=== PATIENT | male | born 1955 | race Two or more races ===

== ENCOUNTER 2018-02-06 22:12 | Inpatient (IN) | payer OTHER, MEDICAID ==
[~2018-02-06] VITALS: Ht 170.2 cm; Wt 74.2 kg
[2018-02-06] MEDS ORDERED: DILTIAZEM HCL IV 125 MG in IV NS 0.9% 100 ML IV PRN ×2 (22:30→23:30)
[2018-02-06] MEDS ORDERED: DILTIAZEM HCL 50 MG IV IV ONE (22:30)
[2018-02-06] MEDS ORDERED: DILTIAZEM HCL 50 MG IV ONE (22:34)
[2018-02-06] MEDS ORDERED: PRED5TAB48 PO (22:46)
[2018-02-06] MEDS ORDERED: GABA-532 PO (22:46)
[2018-02-06] MEDS ORDERED: INSU100I30 SQ (22:46)
[2018-02-06] MEDS ORDERED: AMLO10TA2 PO (22:46)
[2018-02-06] MEDS ORDERED: SEVE800T8 PO (22:46)
[2018-02-06] MEDS ORDERED: LISI40TA4 PO (22:46)
[2018-02-06] MEDS ORDERED: PANT40TA4 PO (22:46)
[2018-02-06] MEDS ORDERED: HYDR12.5 PO (22:46)
[2018-02-06] MEDS ORDERED: SIMV20TA2 PO (22:46)
[2018-02-06] MEDS ORDERED: ALLO100T PO (22:46)
[2018-02-06] MEDS ORDERED: HYDR-552 PO (22:46)
[2018-02-06] MEDS ORDERED: MYCO500T PO (22:46)
[2018-02-06 22:49] LABS: BASOPHILS % (AUTO) 0.4 % (0.0-2.0); EOSINOPHILS % (AUTO) 0.1 % (0.0-6.0); HEMATOCRIT 30 % (39-51); LYMPHOCYTES # (AUTO) 0.8 /CMM (0.8-4.8); LYMPHOCYTES % (AUTO) 12.6 % (20.0-44.0); MEAN CORPUSCULAR HEMOGLOBIN 34 PG (26.0-33.0); MEAN CORPUSCULAR HGB CONC 34 g/dl (31.0-36.0); MEAN CORPUSCULAR VOLUME 100 fL (80-96); MONOCYTES # (AUTO) 0.4 /CMM (0.1-1.30); MONOCYTES % (AUTO) 6.4 % (2.0-12.0); NEUTROPHILS # (AUTO) 4.8 /CMM (1.8-8.9); NEUTROPHILS % (AUTO) 80.5 % (43.0-81.0); PLATELET COUNT (AUTO) 191 /CMM (150-450); RDW COEFFICIENT OF VARIATION 16.2 (11.5-15.0); RED BLOOD CELL COUNT(AUTO) 2.96 MIL/uL (4.5-6.0)
[2018-02-06] MEDS ORDERED: ACET-868 PO (22:49)
[2018-02-06 23:02] LABS: CALCIUM, SERUM 8.8 mg/dL (8.5-10.1); CREATININE 3.9 mg/dL (0.6-1.3)
[2018-02-06 23:05] LABS: INR 0.96 (0.87-1.13)
[2018-02-06 23:17] LABS: TROPONIN I 1.034 ng/mL (0.00-0.056)
[2018-02-06] MEDS ORDERED: ASPIRIN 325 MG TABLET ONE (23:29)
[2018-02-06] MEDS ORDERED: ASPIRIN 325 MG TABLET PO ONE (23:30)
[2018-02-06] MEDS ORDERED: MAGNESIUM HYDROXIDE 30 ML UDC PO PRN (23:30)
[2018-02-06] MEDS ORDERED: ACETAMINOPHEN 325 MG TABLET PO PRN (23:30)
[2018-02-06] MEDS ORDERED: DEXTROSE 50%-WATER 50 ML DISP.SYRIN IV PRN (23:30)
[2018-02-06] MEDS ORDERED: ONDANSETRON HCL/PF 4 MG/2 ML VIAL IVP PRN (23:30)
[2018-02-06] MEDS ORDERED: HYDROCODONE/APAP 10/325MG 1 EA TABLET PO PRN (23:30)
[2018-02-06] MEDS ORDERED: MAG HYDROX/AL HYDROX/SIMETH 30 ML UDC PO PRN (23:30)
[2018-02-06] MEDS ORDERED: HYDROCODONE/APAP 5/325MG 1 EACH TABLET PO PRN (23:30)
[2018-02-07] VITALS (15 sets, daily range): BP systolic 92–133; BP diastolic 43–90
[2018-02-07] MEDS ORDERED: NITROGLYCERIN 0.4 MG/TAB BOTTLE SL ONE
[2018-02-07 07:56] LABS: BASOPHILS % (AUTO) 0.6 % (0.0-2.0); EOSINOPHILS # (AUTO) 0.1 /CMM (0.0-0.7); HEMATOCRIT 29 % (39-51); HEMOGLOBIN 9.7 g/dL (13.5-17.5); LYMPHOCYTES # (AUTO) 1.1 /CMM (0.8-4.8); LYMPHOCYTES % (AUTO) 20.9 % (20.0-44.0); MEAN CORPUSCULAR HEMOGLOBIN 34 PG (26.0-33.0); MEAN CORPUSCULAR HGB CONC 33 g/dl (31.0-36.0); MEAN CORPUSCULAR VOLUME 101 fL (80-96); MONOCYTES # (AUTO) 0.5 /CMM (0.1-1.30); NEUTROPHILS # (AUTO) 3.7 /CMM (1.8-8.9); NEUTROPHILS % (AUTO) 68.5 % (43.0-81.0); PLATELET COUNT (AUTO) 180 /CMM (150-450); RDW COEFFICIENT OF VARIATION 15.9 (11.5-15.0); RED BLOOD CELL COUNT(AUTO) 2.89 MIL/uL (4.5-6.0); WHITE BLOOD COUNT (AUTO) 5.4 K/uL (4.3-11.0)
[2018-02-07 08:09] LABS: CALCIUM, SERUM 8.6 mg/dL (8.5-10.1); CREATININE 5.2 mg/dL (0.6-1.3); MAGNESIUM 2.4 mg/dL (1.8-2.4); PHOSPHORUS 4.6 mg/dL (2.5-4.9); POTASSIUM 4.3 mmol/L (3.5-5.1)
[2018-02-07 08:19] LABS: TROPONIN I 1.277 ng/mL (0.00-0.056)
[2018-02-07] MEDS: ASPIRIN 325 MG TABLET PO SCH (08:32)
[2018-02-07] MEDS: BLOOD SUGAR DIAGNOSTIC 1 EACH STRIP IN SCH ×4 (08:32→22:01)
[2018-02-07] MEDS: GABAPENTIN 100 MG CAPSULE PO SCH (08:32)
[2018-02-07] MEDS: SEVELAMER CARBONATE 800 MG TABLET PO SCH (08:32)
[2018-02-07] MEDS: PANTOPRAZOLE 40 MG TABLET.DR PO SCH (08:33)
[2018-02-07] MEDS: SIMVASTATIN 20 MG TABLET PO SCH (08:33)
[2018-02-07] MEDS: MYCOPHENOLATE MOFETIL 250 MG CAPSULE PO SCH (08:33)
[2018-02-07] MEDS: predniSONE 20 MG TABLET PO SCH (08:33)
[2018-02-07] MEDS: ALLOPURINOL 100 MG TABLET PO SCH (08:33)
[2018-02-07] MEDS: INSULIN REGULAR, HUMAN 100 UNIT/ML 3 ML VIAL SQ PRN ×3 (08:45→22:00)
[2018-02-07] MEDS: INSULIN GLARGINE, 100 UNIT/ML CARTRIDGE SQ SCH (08:45)
[2018-02-07 11:32] LABS: ABG BASE EXCESS 7.6 mmol/L; ABG OXYGEN SATURATION 87.9 % (92.0-98.5); ABG PCO2 42.4 mmHg (35.0-45.0); ABG PH 7.491 (7.350-7.450); ABG PO2 54.9 mmHg (75.0-100.0); AaDO2 181.5 mmHg; COHb 0.3 % (0.5-1.5); MetHb 0.1 % (0.0-1.5); O2Hb 87.5 % (94.0-97.0); SITE, ABG Right Radial; VENT MODE, BG nasal cannula
[2018-02-07] MEDS ORDERED: HEPARIN SODIUM, PORCINE 5000 UNITS/1 ML VIAL IV ONE (12:00)
[2018-02-07] MEDS: HEPARIN INFUSION/D5W 500 ML IV PRN (12:13)
[2018-02-07] MEDS ORDERED: IV NS 0.9% 1,000 ML IV PRN (16:30)
[2018-02-07] MEDS: LISINOPRIL (20MG) 20 MG TABLET PO SCH (17:00)
[2018-02-07] MEDS: AMLODIPINE BESYLATE 10 MG TABLET PO SCH (17:00)
[2018-02-07] MEDS: HYDROCHLOROTHIAZIDE 25 MG TABLET PO SCH (17:00)
[2018-02-08] VITALS (34 sets, daily range): BP systolic 89–147; BP diastolic 35–76
[2018-02-08 05:30] LABS: BASOPHILS % (AUTO) 0.5 % (0.0-2.0); EOSINOPHILS # (AUTO) 0.2 /CMM (0.0-0.7); HEMATOCRIT 34 % (39-51); HEMOGLOBIN 11.3 g/dL (13.5-17.5); LYMPHOCYTES # (AUTO) 1.4 /CMM (0.8-4.8); LYMPHOCYTES % (AUTO) 18.4 % (20.0-44.0); MEAN CORPUSCULAR HEMOGLOBIN 34 PG (26.0-33.0); MEAN CORPUSCULAR HGB CONC 34 g/dl (31.0-36.0); MEAN CORPUSCULAR VOLUME 101 fL (80-96); MONOCYTES # (AUTO) 0.7 /CMM (0.1-1.30); MONOCYTES % (AUTO) 8.4 % (2.0-12.0); NEUTROPHILS # (AUTO) 5.4 /CMM (1.8-8.9); NEUTROPHILS % (AUTO) 69.7 % (43.0-81.0); PLATELET COUNT (AUTO) 212 /CMM (150-450); RDW COEFFICIENT OF VARIATION 15.5 (11.5-15.0); RED BLOOD CELL COUNT(AUTO) 3.32 MIL/uL (4.5-6.0); WHITE BLOOD COUNT (AUTO) 7.7 K/uL (4.3-11.0)
[2018-02-08 05:59] LABS: ALBUMIN 3.5 g/dL (3.4-5.0); BILIRUBIN,TOTAL 0.5 mg/dL (0.2-1.0); CALCIUM, SERUM 9.1 mg/dL (8.5-10.1); CREATININE 5.8 mg/dL (0.6-1.3); MAGNESIUM 2.6 mg/dL (1.8-2.4); PHOSPHORUS 5.5 mg/dL (2.5-4.9); POTASSIUM 3.8 mmol/L (3.5-5.1); TOTAL PROTEIN, SERUM 7.4 g/dL (6.4-8.2)
[2018-02-08 06:02] LABS: TROPONIN I 1.125 ng/mL (0.00-0.056)
[2018-02-08] MEDS: BLOOD SUGAR DIAGNOSTIC 1 EACH STRIP IN SCH ×4 (07:10→21:44)
[2018-02-08 07:30] LABS: IRON, SERUM 48 ug/dl (50-175); TOTAL IRON BINDING CAPACITY 163 ug/dl (250-450)
[2018-02-08] MEDS: PANTOPRAZOLE 40 MG TABLET.DR PO SCH (07:48)
[2018-02-08] MEDS: GABAPENTIN 100 MG CAPSULE PO SCH (07:48)
[2018-02-08] MEDS: HYDROCHLOROTHIAZIDE 25 MG TABLET PO SCH (07:48)
[2018-02-08] MEDS: METOPROLOL TARTRATE 50 MG TABLET PO SCH ×3 (07:48→17:38)
[2018-02-08] MEDS: ASPIRIN 325 MG TABLET PO SCH (07:48)
[2018-02-08] MEDS: SEVELAMER CARBONATE 800 MG TABLET PO SCH (07:49)
[2018-02-08] MEDS: predniSONE 20 MG TABLET PO SCH (07:49)
[2018-02-08] MEDS: AMLODIPINE BESYLATE 10 MG TABLET PO SCH (07:49)
[2018-02-08] MEDS: SIMVASTATIN 20 MG TABLET PO SCH (07:50)
[2018-02-08] MEDS: ALLOPURINOL 100 MG TABLET PO SCH (07:50)
[2018-02-08] MEDS: LISINOPRIL (20MG) 20 MG TABLET PO SCH (07:50)
[2018-02-08] MEDS: MYCOPHENOLATE MOFETIL 250 MG CAPSULE PO SCH (07:50)
[2018-02-08 07:57] LABS: FERRITIN 1691 ng/mL (8-388)
[2018-02-08] MEDS: INSULIN GLARGINE, 100 UNIT/ML CARTRIDGE SQ SCH (08:24)
[2018-02-08] MEDS: HEPARIN INFUSION/D5W 500 ML IV PRN (09:08)
[2018-02-08] MEDS ORDERED: IOHEXOL-350 100 ML VIAL IV ONE (10:04)
[2018-02-08] MEDS ORDERED: IV NS 0.9% 250 ML IV ONE (10:04)
[2018-02-08] MEDS ORDERED: CT SWABBABLE VALVE TRANS SET 1 EA INFUS.SET MC ONE (10:04)
[2018-02-08] MEDS ORDERED: NITROGLYCERIN 0.4 MG/TAB BOTTLE ONE (10:27)
[2018-02-08] MEDS ORDERED: METOPROLOL TARTRATE 50 MG TABLET PO SCH (12:00)
[2018-02-08] MEDS: INSULIN REGULAR, HUMAN 100 UNIT/ML 3 ML VIAL SQ PRN ×3 (12:16→21:48)
[2018-02-09] VITALS (16 sets, daily range): BP systolic 98–129; BP diastolic 41–66
[2018-02-09] MEDS: METOPROLOL TARTRATE 50 MG TABLET PO SCH ×4 (00:08→17:59)
[2018-02-09 04:44] LABS: BASOPHILS % (AUTO) 0.7 % (0.0-2.0); EOSINOPHILS # (AUTO) 0.3 /CMM (0.0-0.7); HEMATOCRIT 32 % (39-51); HEMOGLOBIN 10.7 g/dL (13.5-17.5); LYMPHOCYTES # (AUTO) 1.4 /CMM (0.8-4.8); LYMPHOCYTES % (AUTO) 21.3 % (20.0-44.0); MEAN CORPUSCULAR HEMOGLOBIN 34 PG (26.0-33.0); MEAN CORPUSCULAR HGB CONC 34 g/dl (31.0-36.0); MEAN CORPUSCULAR VOLUME 101 fL (80-96); MONOCYTES # (AUTO) 0.5 /CMM (0.1-1.30); MONOCYTES % (AUTO) 7.4 % (2.0-12.0); NEUTROPHILS # (AUTO) 4.2 /CMM (1.8-8.9); NEUTROPHILS % (AUTO) 65.6 % (43.0-81.0); PLATELET COUNT (AUTO) 198 /CMM (150-450); RDW COEFFICIENT OF VARIATION 16.3 (11.5-15.0); RED BLOOD CELL COUNT(AUTO) 3.15 MIL/uL (4.5-6.0); WHITE BLOOD COUNT (AUTO) 6.4 K/uL (4.3-11.0)
[2018-02-09 05:03] LABS: ALBUMIN 2.8 g/dL (3.4-5.0); BILIRUBIN,TOTAL 0.4 mg/dL (0.2-1.0); CALCIUM, SERUM 8.5 mg/dL (8.5-10.1); CREATININE 5.6 mg/dL (0.6-1.3); MAGNESIUM 2.3 mg/dL (1.8-2.4); PHOSPHORUS 5.6 mg/dL (2.5-4.9); POTASSIUM 3.8 mmol/L (3.5-5.1); TOTAL PROTEIN, SERUM 6.1 g/dL (6.4-8.2)
[2018-02-09 05:20] LABS: TROPONIN I 1.016 ng/mL (0.00-0.056)
[2018-02-09] MEDS: HEPARIN INFUSION/D5W 500 ML IV PRN (06:45)
[2018-02-09] MEDS: PANTOPRAZOLE 40 MG TABLET.DR PO SCH (07:47)
[2018-02-09] MEDS: BLOOD SUGAR DIAGNOSTIC 1 EACH STRIP IN SCH ×4 (07:47→21:31)
[2018-02-09] MEDS: INSULIN GLARGINE, 100 UNIT/ML CARTRIDGE SQ SCH (08:03)
[2018-02-09] MEDS: INSULIN REGULAR, HUMAN 100 UNIT/ML 3 ML VIAL SQ PRN ×3 (08:05→21:37)
[2018-02-09] MEDS: LISINOPRIL (20MG) 20 MG TABLET PO SCH (09:00)
[2018-02-09] MEDS: AMLODIPINE BESYLATE 10 MG TABLET PO SCH (09:00)
[2018-02-09] MEDS: SIMVASTATIN 20 MG TABLET PO SCH (09:26)
[2018-02-09] MEDS: ASPIRIN 325 MG TABLET PO SCH (09:27)
[2018-02-09] MEDS: MYCOPHENOLATE MOFETIL 250 MG CAPSULE PO SCH (09:27)
[2018-02-09] MEDS: predniSONE 20 MG TABLET PO SCH (09:27)
[2018-02-09] MEDS: GABAPENTIN 100 MG CAPSULE PO SCH (09:27)
[2018-02-09] MEDS: ALLOPURINOL 100 MG TABLET PO SCH (09:27)
[2018-02-09] MEDS: SEVELAMER CARBONATE 800 MG TABLET PO SCH (09:27)
[2018-02-09] MEDS: HEPARIN SODIUM, PORCINE 5000 UNITS/1 ML VIAL SQ SCH (21:33)
[2018-02-10] VITALS: BP 114/59
[2018-02-10 04:00] VITALS: BP 109/56
[2018-02-10] MEDS: METOPROLOL TARTRATE 50 MG TABLET PO SCH ×4 (06:00→18:28)
[2018-02-10] MEDS: BLOOD SUGAR DIAGNOSTIC 1 EACH STRIP IN SCH ×4 (07:01→22:11)
[2018-02-10] MEDS: INSULIN REGULAR, HUMAN 100 UNIT/ML 3 ML VIAL SQ PRN ×3 (07:09→22:10)
[2018-02-10 08:00] VITALS: BP 127/59
[2018-02-10] MEDS: AMLODIPINE BESYLATE 10 MG TABLET PO SCH (09:00)
[2018-02-10] MEDS: LISINOPRIL (20MG) 20 MG TABLET PO SCH (09:00)
[2018-02-10] MEDS: SIMVASTATIN 20 MG TABLET PO SCH (09:36)
[2018-02-10] MEDS: INSULIN GLARGINE, 100 UNIT/ML CARTRIDGE SQ SCH (09:36)
[2018-02-10] MEDS: SEVELAMER CARBONATE 800 MG TABLET PO SCH (09:37)
[2018-02-10] MEDS: PANTOPRAZOLE 40 MG TABLET.DR PO SCH (09:37)
[2018-02-10] MEDS: ASPIRIN 325 MG TABLET PO SCH (09:37)
[2018-02-10] MEDS: GABAPENTIN 100 MG CAPSULE PO SCH (09:37)
[2018-02-10] MEDS: MYCOPHENOLATE MOFETIL 250 MG CAPSULE PO SCH (09:38)
[2018-02-10] MEDS: predniSONE 20 MG TABLET PO SCH (09:38)
[2018-02-10] MEDS: ALLOPURINOL 100 MG TABLET PO SCH (09:38)
[2018-02-10] MEDS: HEPARIN SODIUM, PORCINE 5000 UNITS/1 ML VIAL SQ SCH ×2 (09:41→22:11)
[2018-02-10 16:00] VITALS: BP 129/58
[2018-02-10 20:00] VITALS: BP 123/63
[2018-02-11] MEDS: METOPROLOL TARTRATE 50 MG TABLET PO SCH ×3 (06:00→11:54)
[2018-02-11 06:22] LABS: BASOPHILS % (AUTO) 0.8 % (0.0-2.0); EOSINOPHILS # (AUTO) 0.2 /CMM (0.0-0.7); EOSINOPHILS % (AUTO) 3.3 % (0.0-6.0); HEMATOCRIT 29 % (39-51); HEMOGLOBIN 9.7 g/dL (13.5-17.5); LYMPHOCYTES # (AUTO) 1.2 /CMM (0.8-4.8); LYMPHOCYTES % (AUTO) 25.5 % (20.0-44.0); MEAN CORPUSCULAR HEMOGLOBIN 33 PG (26.0-33.0); MEAN CORPUSCULAR HGB CONC 33 g/dl (31.0-36.0); MEAN CORPUSCULAR VOLUME 100 fL (80-96); MONOCYTES # (AUTO) 0.5 /CMM (0.1-1.30); NEUTROPHILS # (AUTO) 2.8 /CMM (1.8-8.9); NEUTROPHILS % (AUTO) 60.4 % (43.0-81.0); PLATELET COUNT (AUTO) 168 /CMM (150-450); RDW COEFFICIENT OF VARIATION 15.7 (11.5-15.0); RED BLOOD CELL COUNT(AUTO) 2.94 MIL/uL (4.5-6.0); WHITE BLOOD COUNT (AUTO) 4.7 K/uL (4.3-11.0)
[2018-02-11 06:38] LABS: CALCIUM, SERUM 8.3 mg/dL (8.5-10.1); CREATININE 6.8 mg/dL (0.6-1.3); POTASSIUM 3.8 mmol/L (3.5-5.1)
[2018-02-11] MEDS: BLOOD SUGAR DIAGNOSTIC 1 EACH STRIP IN SCH ×2 (06:53→11:54)
[2018-02-11 08:00] VITALS: BP 134/74
[2018-02-11] MEDS: ASPIRIN 325 MG TABLET PO SCH (08:15)
[2018-02-11] MEDS: SEVELAMER CARBONATE 800 MG TABLET PO SCH (08:15)
[2018-02-11] MEDS: ALLOPURINOL 100 MG TABLET PO SCH (08:15)
[2018-02-11] MEDS: LISINOPRIL (20MG) 20 MG TABLET PO SCH (08:15)
[2018-02-11] MEDS: AMLODIPINE BESYLATE 10 MG TABLET PO SCH (08:15)
[2018-02-11] MEDS: PANTOPRAZOLE 40 MG TABLET.DR PO SCH (08:15)
[2018-02-11] MEDS: MYCOPHENOLATE MOFETIL 250 MG CAPSULE PO SCH (08:15)
[2018-02-11] MEDS: GABAPENTIN 100 MG CAPSULE PO SCH (08:15)
[2018-02-11] MEDS: predniSONE 20 MG TABLET PO SCH (08:15)
[2018-02-11] MEDS: HEPARIN SODIUM, PORCINE 5000 UNITS/1 ML VIAL SQ SCH (08:16)
[2018-02-11] MEDS: SIMVASTATIN 20 MG TABLET PO SCH (08:27)
[2018-02-11 09:08] VITALS: BP 134/76
[2018-02-11] MEDS: INSULIN REGULAR, HUMAN 100 UNIT/ML 3 ML VIAL SQ PRN ×2 (09:26→11:54)
[2018-02-11] MEDS ORDERED: ASPI-992 PO (10:10)
[2018-02-11] MEDS ORDERED: METO50TA16 PO (10:10)
[2018-02-11] MEDS: INSULIN GLARGINE, 100 UNIT/ML CARTRIDGE SQ SCH (10:12)
[2018-02-11 10:47] LABS: ABG BASE EXCESS 6.5 mmol/L; ABG OXYGEN SATURATION 97.7 % (92.0-98.5); ABG PCO2 41.5 mmHg (35.0-45.0); ABG PH 7.484 (7.350-7.450); ABG PO2 136.9 mmHg (75.0-100.0); AaDO2 42.7 mmHg; COHb 0.2 % (0.5-1.5); MetHb 0.2 % (0.0-1.5); O2Hb 97.3 % (94.0-97.0); SITE, ABG Right Brachial
[2018-02-11 11:54] VITALS: BP 121/42
== END 2018-02-11 15:35 | disposition home or self-care (01) | DRG 280 ==
LOC: ER 22:15 → TELE-TD 23:24 → ICU 02-07 17:08 → TELE 02-09 11:28 → MED 02-10 09:03
PROVIDERS: ADMIT Nurse Practitioner Acute Care; ATTEND Nurse Practitioner Acute Care
PROC: 5A1D70Z Performance of Urinary Filtration, Intermittent, Less than 6 Hours Per Day (ICD-10-PCS; principal; 2018-02-07)
PROC: 5A1D70Z Performance of Urinary Filtration, Intermittent, Less than 6 Hours Per Day (ICD-10-PCS; 2018-02-08)
PROC: 5A1D70Z Performance of Urinary Filtration, Intermittent, Less than 6 Hours Per Day (ICD-10-PCS; 2018-02-10)
DX: I48.91 Unspecified atrial fibrillation (principal); I21.A1 Myocardial infarction type 2; J96.91 Respiratory failure, unspecified with hypoxia; I13.2 Hypertensive heart and chronic kidney disease with heart failure and with stage 5 chronic kidney disease, or end stage renal disease; E44.0 Moderate protein-calorie malnutrition; J90 Pleural effusion, not elsewhere classified; T86.12 Kidney transplant failure; I50.33 Acute on chronic diastolic (congestive) heart failure; N18.6 End stage renal disease; Z99.2 Dependence on renal dialysis; D63.8 Anemia in other chronic diseases classified elsewhere; E11.22 Type 2 diabetes mellitus with diabetic chronic kidney disease; E66.9 Obesity, unspecified; E78.5 Hyperlipidemia, unspecified; I25.10 Atherosclerotic heart disease of native coronary artery without angina pectoris; K21.9 Gastro-esophageal reflux disease without esophagitis; R23.4 Changes in skin texture; M10.9 Gout, unspecified; M19.90 Unspecified osteoarthritis, unspecified site; Z68.25 Body mass index [BMI] 25.0-25.9, adult; I34.0 Nonrheumatic mitral (valve) insufficiency; E83.9 Disorder of mineral metabolism, unspecified; G47.33 Obstructive sleep apnea (adult) (pediatric); E11.65 Type 2 diabetes mellitus with hyperglycemia; E88.09 Other disorders of plasma-protein metabolism, not elsewhere classified; Y83.0 Surgical operation with transplant of whole organ as the cause of abnormal reaction of the patient, or of later complication, without mention of misadventure at the time of the procedure; Y92.009 Unspecified place in unspecified non-institutional (private) residence as the place of occurrence of the external cause; Z79.4 Long term (current) use of insulin
CPT/HCPCS: 36415; 36600; 71045-TC; 75574; 80048-TC; 80053-TC; 80061-TC; 82728-TC; 82803-TC; 82962-TC; 83540-TC; 83735-TC; 83880; 84100-TC; 84484-TC; 85025-TC; 85730-TC; 87081-TC; 90935-TC; 93307-TC; A4606; J1644; J1815; J3490; J7030; J7050; J7517; Q9967; Z7610